=== PATIENT | male | born 1960 | race Caucasian/White ===

== ENCOUNTER 2021-05-12 11:35 | Day surgery (SDC) | payer OTHER ==
[2021-05-12] VITALS (7 sets, daily range): BP systolic 105–136; BP diastolic 66–86
[~2021-05-12] VITALS: Ht 177.8 cm; Wt 77.9 kg
[~2021-05-12 11:35] MED LIST: NO HOME MEDS; famotidine 20mg tablet PO ONE; ringers solution, lacted 1,000 ML IV SCH
[2021-05-12 12:44] LABS: BASOPHILS # (AUTO) 0.1 X10'3 (0-0.2); BASOPHILS % (AUTO) 1.3 % (0-1); EOSINOPHILS # (AUTO) 0.2 X10'3 (0-0.9); EOSINOPHILS % (AUTO) 3.3 % (0-6); HEMATOCRIT 42.6 % (42.0-52.0); HEMOGLOBIN 14.1 g/dl (14.0-17.9); LYMPHOCYTES # (AUTO) 1.5 X10'3 (1.1-4.8); LYMPHOCYTES % (AUTO) 26.1 % (21-51); MEAN CORPUSCULAR HEMOGLOBIN 27.7 PG (27.0-31.0); MEAN CORPUSCULAR VOLUME 83.9 FL (78-98); MEAN PLATELET VOLUME 8.5 FL (7.4-10.4); MONOCYTES # (AUTO) 0.3 X10'3 (0-0.9); NEUTROPHILS # (AUTO) 3.7 X10'3 (1.8-7.7); NEUTROPHILS % (AUTO) 63.3 % (42-75); PLATELET COUNT 173 X10'3 (140-440); RED BLOOD COUNT 5.08 X10'6 (4.70-6.10); RED CELL DISTRIBUTION WIDTH 13.9 % (11.5-14.5); WHITE BLOOD COUNT 5.8 X10'3 (4.5-11.0)
[2021-05-12 13:13] LABS: ALANINE AMINOTRANSFERASE 29 U/L (12-78); ALBUMIN/GLOBULIN RATIO 1.3 (1.1-1.5); ALKALINE PHOSPHATASE 64 IU/L (46-116); ANION GAP 6 (8-16); ASPARTATE AMINO TRANSFERASE 14 U/L (10-37); BILIRUBIN,TOTAL 0.6 MG/DL (0.1-1.0); BLOOD UREA NITROGEN 17 MG/DL (7-18); BUN/CREATININE RATIO 25.8 (5.4-32.0); CALCIUM 8.9 MG/DL (8.5-10.1); CHLORIDE 106 MMOL/L (99-107); CREATININE 0.66 MG/DL (0.60-1.10); GLUCOSE 153 MG/DL (70-104); POTASSIUM 3.9 MMOL/L (3.5-5.1); SODIUM 140 MMOL/L (135-145); TOTAL CARBON DIOXIDE 27.7 MMOL/L (24-32); TOTAL PROTEIN 7.1 G/DL (6.4-8.2); eGFR > 90 ML/MIN
[2021-05-12] MEDS ORDERED: BUPIVAcaine 0.5% inj/PF 30 ML ONE (16:35)
[2021-05-12] MEDS ORDERED: triamcinolone acetonide 40mg/ml inj ONE (16:35)
[2021-05-12] MEDS ORDERED: sevoflurane 250ml liquid IH ONE (17:12)
[2021-05-12] MEDS ORDERED: FENTANYL CITRATE/PF 50 MCG/1 ML VIAL ONE (17:14)
[2021-05-12] MEDS ORDERED: midazolam 1 mg/ML 2ml injection ONE (17:20)
[2021-05-12] MEDS ORDERED: BUPIVAcaine 0.5% inj/PF 30 ml vial IJ ONE (17:22)
[2021-05-12] MEDS ORDERED: triamcinolone acetonide 40mg/ml inj IJ ONE (17:22)
[2021-05-12] MEDS ORDERED: LIDOcaine 2% (20mg/ml) 5ml vial ONE (17:27)
[2021-05-12] MEDS ORDERED: propofol inj 20 ML IV ONE (17:27)
[2021-05-12] MEDS ORDERED: ringers solution, lacted 1,000 ML IV SCH (17:40)
[2021-05-12] MEDS ORDERED: morphine 4 MG/ML inj SYRINge IV PRN (17:40)
[2021-05-12] MEDS ORDERED: proCHLORperazine 10 MG/2 ml inj IV PRN (17:40)
[2021-05-12] MEDS ORDERED: meperidine/PF 25mg/ml syringe IV PRN ×3 (17:40)
[2021-05-12] MEDS ORDERED: morphine 2 MG/ML inj. syringe IV PRN (17:40)
[2021-05-12] MEDS ORDERED: ondansetron/PF 4mg/2ml inj IV PRN (17:40)
--- NOTE | 2021-05-12 18:28 | NUR ---
AWAKE AND ORIENTED. VITALS STABLE. DRESSING DI. CRISTINO PAIN. HOME WITH HIS AT THIS TIME.
== END 2021-05-12 18:25 | disposition home or self-care (01) ==
LOC: EDBD 11:35 → PAS 11:35
PROVIDERS: ATTEND Orthopaedic Surgery
DX: M75.01 Adhesive capsulitis of right shoulder (principal); M19.012 Primary osteoarthritis, left shoulder; G89.4 Chronic pain syndrome; M19.011 Primary osteoarthritis, right shoulder; M17.0 Bilateral primary osteoarthritis of knee; G47.33 Obstructive sleep apnea (adult) (pediatric); E66.8 Other obesity; Z68.25 Body mass index [BMI] 25.0-25.9, adult; Z20.822 Contact with and (suspected) exposure to COVID-19; Z79.899 Other long term (current) drug therapy; Z98.890 Other specified postprocedural states
CPT/HCPCS: 20610; 23700; 36415; 80053; 85025; 87635; 93005; C9803; J2250; J2704; J3010; J3301; J3490; J7120; S0020; Z7506; Z7512; A4215; A4618